=== PATIENT | male | born 1975 | race Caucasian/White ===

== ENCOUNTER 2022-02-07 05:56 | Inpatient (IN) | payer MEDICAID ==
[~2022-02-07] VITALS: Ht 167.6 cm; Wt 78.7 kg
[2022-02-07] MEDS ORDERED: INFLUENZA VIRUS VACCINE QVS 2022-23 (6MO+)/PF 60 MCG/0.5 ML SYRINGE IM. ONE (14:15)
[2022-02-07] MEDS ORDERED: PNEUMOCOCCAL VACCINE POLYVALENT 0.5 ML VIAL [PPSV23] IM. ONE (14:15)
[2022-02-07] MEDS ORDERED: no home medication (15:21)
[2022-02-07 15:36] VITALS: BP 116/73
[2022-02-07] MEDS ORDERED: NICOTINE 14 MG/24 HOUR PATCH TD PRN (16:30)
[2022-02-07 16:47] VITALS: BP 112/64
[2022-02-07 20:03] VITALS: BP 114/72
[2022-02-07] MEDS: ZOLPIDEM TARTRATE 10 MG TABLET PO PRN (20:12)
[2022-02-07] MEDS: LORazepam 2 MG TABLET PO PRN (20:12)
[2022-02-07] MEDS: HALOPERIDOL 5 MG TABLET PO PRN (20:12)
[2022-02-08 07:09] LABS: BASOPHILS % (AUTO) 0.9 % (0.0-2.0); EOSINOPHILS % (AUTO) 2.6 % (1.0-6.0); HEMOGLOBIN 14.6 g/dL (13.5-17.5); LYMPHOCYTES # (AUTO) 1.4 K/uL (1.0-4.8); MEAN CORPUSCULAR HEMOGLOBIN 36.6 pg (26.0-34.0); MEAN CORPUSCULAR HGB CONC 35.5 G/dL (31.0-37.0); MEAN CORPUSCULAR VOLUME 103 fL (80-100); MONOCYTES # (AUTO) 0.5 K/uL (0.1-1.0); NEUTROPHILS % (AUTO) 59.5 % (40.0-70.0); PLATELET COUNT (AUTO) 165 K/uL (150-450); RED BLOOD CELL COUNT(AUTO) 3.98 MIL/uL (4.50-5.90); RED CELL DISTRIBUTION WIDTH 12.9 % (11.5-14.5)
[2022-02-08 07:24] LABS: HEMOGLOBIN A1C 4.8 % (3.8-5.6)
[2022-02-08 07:38] LABS: ALANINE AMINOTRANSFERASE 68 U/L (12-78); ALBUMIN 3.1 g/dL (3.4-5.0); ALKALINE PHOSPHATASE 102 U/L (46-116); ANION GAP 4 mmol/L (8-16); ASPARTATE AMINOTRANSFERASE 56 U/L (15-37); BILIRUBIN,TOTAL 0.5 mg/dL (0.1-1.0); CARBON DIOXIDE 28 mmol/L (22-29); CHLORIDE 105 mmol/L (98-107); CHOL/HDL RATIO 2.8 (4.2-7.3); CHOLESTEROL 135 mg/dL (131-200); CREATININE 0.86 mg/dL (0.60-1.30); FREE T4 (FREE THYROXINE) 0.96 ng/dL (0.76-1.46); GLOMERULAR FILTR. RATE CALC > 60 mL/min (>60); GLUCOSE,RANDOM 94 mg/dL (70-110); HDL CHOLESTEROL 48 mg/dL (40-60); LDL CHOL (CALC.) 75 mg/dL (0-130); POTASSIUM 4.2 mmol/L (3.5-5.1); SODIUM SERUM 137 mmol/L (136-145); THYROID STIMULATING HORMONE 1.53 uIU/mL (0.36-3.74); TOTAL PROTEIN, SERUM 6.5 g/dL (6.4-8.2); TRIGLYCERIDES 62 mg/dL (15-150); UREA NITROGEN, BLOOD 12 mg/dL (7-18)
[2022-02-08 08:21] VITALS: BP 110/62
[2022-02-08] MEDS: NICOTINE 14 MG/24 HOUR PATCH TD SCH (08:49)
[2022-02-08] MEDS ORDERED: PETROLATUM,WHITE 28 GM JELLY TP PRN (15:15)
[2022-02-08] MEDS ORDERED: ONDANSETRON HCL 4 MG TABLET PO PRN (15:15)
[2022-02-08] MEDS ORDERED: GuaiFENesin/D-METHORPHAN [SUGAR-FREE] 200-20MG/10 ML SYRUP UDCUP PO PRN (15:15)
[2022-02-08] MEDS ORDERED: ACETAMINOPHEN 325 MG TABLET PO PRN (15:15)
[2022-02-08] MEDS ORDERED: ALBUTEROL SULFATE HFA 90 MCG/PUFF 8 GM INHALER IH PRN (15:15)
[2022-02-08] MEDS ORDERED: MAG HYDROX/AL HYDROX/SIMETH ES 30 ML SUSPENSION UDCUP PO PRN (15:15)
[2022-02-08] MEDS ORDERED: IBUPROFEN 400 MG TABLET PO PRN (15:15)
[2022-02-08] MEDS ORDERED: LOPERAMIDE HCL 2 MG CAPSULE PO PRN (15:15)
[2022-02-08] MEDS ORDERED: CloNIDine HCL 0.1 MG TABLET PO PRN (15:15)
[2022-02-08] MEDS ORDERED: MAGNESIUM HYDROXIDE SUSPENSION 30 ML UDCUP PO PRN (15:15)
[2022-02-08] MEDS ORDERED: NICOTINE 14 MG/24 HOUR PATCH TD PRN (15:15)
[2022-02-08] MEDS ORDERED: DOCUSATE SODIUM 100 MG CAPSULE PO PRN (15:15)
[2022-02-08] MEDS: LORazepam 2 MG TABLET PO PRN (16:01)
[2022-02-08] MEDS: HALOPERIDOL 5 MG TABLET PO PRN (16:02)
[2022-02-08 20:16] VITALS: BP 103/63
[2022-02-08] MEDS: QUEtiapine FUMARATE 100 MG TABLET PO SCH (20:27)
[2022-02-09 08:09] VITALS: BP 112/72
[2022-02-09] MEDS: NICOTINE 14 MG/24 HOUR PATCH TD SCH (08:15)
[2022-02-09] MEDS: HALOPERIDOL 5 MG TABLET PO PRN (16:30)
[2022-02-09] MEDS: LORazepam 2 MG TABLET PO PRN (16:30)
[2022-02-09] MEDS: QUEtiapine FUMARATE 100 MG TABLET PO SCH (20:23)
[2022-02-09] MEDS: ZOLPIDEM TARTRATE 10 MG TABLET PO PRN (20:23)
[2022-02-09 20:54] VITALS: BP 121/80
[2022-02-10 08:12] VITALS: BP 106/70
[2022-02-10] MEDS: NICOTINE 14 MG/24 HOUR PATCH TD SCH (08:22)
[2022-02-10] MEDS: LORazepam 2 MG TABLET PO PRN ×2 (08:22→16:14)
[2022-02-10] MEDS: HALOPERIDOL 5 MG TABLET PO PRN ×2 (08:22→16:14)
[2022-02-10 20:00] VITALS: BP 114/66
[2022-02-10] MEDS: QUEtiapine FUMARATE 100 MG TABLET PO SCH (20:09)
[2022-02-10] MEDS: ZOLPIDEM TARTRATE 10 MG TABLET PO PRN (20:09)
[2022-02-11] MEDS: HALOPERIDOL 5 MG TABLET PO PRN ×2 (08:15→17:28)
[2022-02-11] MEDS: LORazepam 2 MG TABLET PO PRN ×2 (08:15→17:28)
[2022-02-11] MEDS: NICOTINE 14 MG/24 HOUR PATCH TD SCH (08:16)
[2022-02-11 08:39] VITALS: BP 122/60
[2022-02-11 20:13] VITALS: BP 119/72
[2022-02-11] MEDS: ZOLPIDEM TARTRATE 10 MG TABLET PO PRN (20:32)
[2022-02-11] MEDS: QUEtiapine FUMARATE 100 MG TABLET PO SCH (20:32)
[2022-02-12] MEDS: HALOPERIDOL 5 MG TABLET PO PRN (08:25)
[2022-02-12] MEDS: LORazepam 2 MG TABLET PO PRN ×2 (08:25→15:24)
[2022-02-12] MEDS: NICOTINE 14 MG/24 HOUR PATCH TD SCH (08:25)
[2022-02-12 09:01] VITALS: BP 116/69
[2022-02-12] MEDS: ZOLPIDEM TARTRATE 10 MG TABLET PO PRN (20:18)
[2022-02-12] MEDS: QUEtiapine FUMARATE 100 MG TABLET PO SCH (20:18)
[2022-02-12 22:24] VITALS: BP 116/73
[2022-02-13 08:08] VITALS: BP 115/75
[2022-02-13] MEDS: NICOTINE 14 MG/24 HOUR PATCH TD SCH (08:10)
[2022-02-13] MEDS: LORazepam 2 MG TABLET PO PRN ×2 (09:33→15:01)
[2022-02-13] MEDS: HALOPERIDOL 5 MG TABLET PO PRN ×2 (09:33→15:01)
[2022-02-13 17:45] VITALS: BP 122/72
[2022-02-13] MEDS: QUEtiapine FUMARATE 100 MG TABLET PO SCH (20:28)
[2022-02-13] MEDS: ZOLPIDEM TARTRATE 10 MG TABLET PO PRN (20:33)
[2022-02-13 21:24] VITALS: BP 122/72
[2022-02-14 00:56] LABS: GLUCOMETER DEV NAME(LOC) POC.BV
[2022-02-14] MEDS: HALOPERIDOL 5 MG TABLET PO PRN ×2 (07:35→12:12)
[2022-02-14] MEDS: LORazepam 2 MG TABLET PO PRN ×3 (07:35→20:13)
[2022-02-14] MEDS: NICOTINE 14 MG/24 HOUR PATCH TD SCH (08:28)
[2022-02-14 09:11] VITALS: BP 122/70
[2022-02-14] MEDS: QUEtiapine FUMARATE 100 MG TABLET PO SCH (20:12)
[2022-02-14 20:55] VITALS: BP 112/78
[2022-02-15] MEDS: NICOTINE 14 MG/24 HOUR PATCH TD SCH (08:51)
[2022-02-15] MEDS: LORazepam 2 MG TABLET PO PRN ×2 (11:09→16:08)
[2022-02-15] MEDS: HALOPERIDOL 5 MG TABLET PO PRN ×2 (11:13→16:08)
[2022-02-15 20:25] VITALS: BP 129/79
[2022-02-15] MEDS: QUEtiapine FUMARATE 100 MG TABLET PO SCH (20:31)
[2022-02-15] MEDS: ZOLPIDEM TARTRATE 10 MG TABLET PO PRN (20:49)
[2022-02-16] MEDS: LORazepam 2 MG TABLET PO PRN (08:37)
[2022-02-16] MEDS: NICOTINE 14 MG/24 HOUR PATCH TD SCH (08:37)
[2022-02-16] MEDS: HALOPERIDOL 5 MG TABLET PO PRN (08:38)
[2022-02-16 09:15] VITALS: BP 100/56
[2022-02-16] MEDS ORDERED: TraZODone HCL 50 MG TABLET PO PRN (18:00)
[2022-02-16] MEDS: LORATADINE 10 MG TABLET PO PRN (18:37)
[2022-02-16] MEDS: HydrOXYzine PAMOATE 25 MG CAPSULE PO PRN (18:37)
[2022-02-16] MEDS: QUEtiapine FUMARATE 100 MG TABLET PO SCH (20:07)
[2022-02-16 20:30] VITALS: BP 113/71
[2022-02-17] MEDS: NICOTINE 14 MG/24 HOUR PATCH TD SCH (08:21)
[2022-02-17] MEDS: LORATADINE 10 MG TABLET PO PRN (08:21)
[2022-02-17] MEDS: HydrOXYzine PAMOATE 25 MG CAPSULE PO PRN (08:21)
[2022-02-17] MEDS: HALOPERIDOL 5 MG TABLET PO PRN (08:21)
[2022-02-17 09:37] VITALS: BP 100/65
[2022-02-17] MEDS ORDERED: QUET100T PO (12:51)
[2022-02-18] MEDS ORDERED: QUET100T34 PO (05:10)
== END 2022-02-17 13:46 | disposition home or self-care (01) | DRG 750 ==
LOC: B3A 13:33
PROVIDERS: ADMIT Psychiatry & Neurology Child & Adolescent Psychiatry; ATTEND Psychiatry & Neurology Child & Adolescent Psychiatry
DX: F25.1 Schizoaffective disorder, depressive type (principal); F17.200 Nicotine dependence, unspecified, uncomplicated; Z20.822 Contact with and (suspected) exposure to COVID-19; F41.9 Anxiety disorder, unspecified; R10.13 Epigastric pain; G47.00 Insomnia, unspecified; Z91.51 Personal history of suicidal behavior; Z79.899 Other long term (current) drug therapy
CPT/HCPCS: 80053; 80061; 83036; 84439; 84443; 85025